=== PATIENT | male | born 1975 | race Caucasian/White ===

== ENCOUNTER 2025-07-25 10:50 | Observation (INO) | payer BC, SELFPAY ==
[2025-07-25] VITALS (12 sets, daily range): BP systolic 85–148; BP diastolic 65–96; PULSE 60–94; RESP 12–98; TEMP 36.1–37.2; O2SAT 94–99; BMI 32.2; BMI 33.1
--- NOTE | 2025-07-25 11:02 | XR_ITS ---
Examination: CT abdomen and pelvis without contrast. Coronal 3-D reconstructions. Sagittal 2-D reconstructions. Date and time of exam: July 25, 2025, 1139 hours INDICATIONS: Right upper abdominal pain nausea vomiting beginning today CTDI: vol (mGy): 9.27 DLP: (mGycm): 636 Technique: Axial images of the abdomen have been obtained, 3 mm slice thickness Intravenous contrast material has not been administered. Low dose protocols were performed. One or more of the following dose reduction techniques were used; automated exposure control, adjustment of the mA and/or KV according to patient size, use of iterative reconstruction technique. Findings: 2 mm pulmonary nodule in the right lower lobe Diffuse fatty infiltration throughout the liver Abnormal gallbladder, marked wall thickening and edema and distention with pericholecystic inflammatory change Common hepatic duct 6 mm no definite stones No pancreatic or adrenal mass Mild to moderate renal scar formation, no hydronephrosis Aorta normal size 14 mm fat-containing umbilical hernia Normal appendix No bowel obstruction Mild free fluid in the pelvis No prostatomegaly Urinary bladder intact Mild osteopenia IMPRESSION: Acute cholecystitis, enlarged common bile duct Consider MRCP follow-up
--- NOTE | 2025-07-25 11:02 | XR_ITS ---
Examination: Abdomen sonogram, Limited Date and time of exam: July 25, 2025, 1111 hours INDICATIONS: Onset right upper abdominal pain today Technique: Real-time shirley scale transabdominal sonographic images of the upper abdomen obtained. Findings: Multiple gallstones Gallbladder sludge Gallbladder wall 1.1 cm with edema Common bile duct 0.4 cm Pancreas obscured by bowel gas Liver 18.5 cm fatty infiltration Normal hepatopetal portal venous flow Patent IVC IMPRESSION: Acute calculus cholecystitis
--- NOTE | 2025-07-25 11:12 | PD.EDRME ---
Rapid Medical Screening Exam RME Arrival date/time: 07/25/25 10:50 50-year-old male presents to the Emergency Department today for complaints of right-sided abdominal pain Chief Complaint: Abdominal Pain Vital signs: Vital Signs Temperature 98.1 F 07/25/25 10:57 Pulse Rate 94 07/25/25 10:57 Respiratory Rate 19 07/25/25 10:57 Blood Pressure 148/96 H 07/25/25 10:57 Pulse Oximetry (%) 97 07/25/25 10:57 Oxygen Delivery Method Room Air 07/25/25 10:57
[2025-07-25 11:30] LABS: Basophils # (Auto) 0.1 Thou/mm3 (0.0-0.2); Basophils % (Auto) 0 % (0-2.5); Eosinophils # (Auto) 0.0 Thou/mm3 (0.0-0.5); Eosinophils % (Auto) 0 % (0-10); Hematocrit 44.7 % (41.0-53.0); Hemoglobin 15.7 g/dL (13.5-16.0); Immature Granulocytes Auto 0.08 Thou/mm3 (0.00-0.00); Lymphocytes # (Auto) 1.4 Thou/mm3 (1.0-4.8); Lymphocytes % (Auto) 8 % (10-50); Mean Corpuscular HGB Conc 35.1 g/dl (31.0-37.0); Mean Corpuscular Hemoglobin 30.9 pg (25.0-35.0); Mean Corpuscular Volume 88 fL (80-100); Monocytes # (Auto) 1.7 Thou/mm3 (0.0-0.8); Monocytes % (Auto) 10 % (0-12); Neutrophils # (Auto) 14.5 Thou/mm3 (1.8-7.7); Neutrophils % (Auto) 81 % (37-80); Nucleated Red Blood Cell # 0.00 Thou/mm3 (0.00-0.00); Nucleated Red Blood Cell % 0 /100 WBC (0); Platelet Count 189 Thou/mm3 (140-440); RDW Standard Deviation 40.5 fL (35.1-43.9); Red Blood Count 5.08 Miln/mm3 (4.50-5.90); White Blood Count 17.8 Thou/mm3 (3.8-10.6)
[2025-07-25] MEDS: HYDROcodone/APAP 5/325 TABLET 1 TAB PO (11:30)
[2025-07-25] MEDS: KETOROLAC INJ 30 MG/ML VIAL IM (11:31)
--- NOTE | 2025-07-25 11:34 | EDNOTE_ITS ---
ED General E/[facility] General Chief complaint: Abdominal Pain Stated complaint: RUQ ABD PAIN, NAUSEA VOMITING Time Seen by Provider: 07/25/25 11:34 Arrival date/time: 07/25/25 10:50 E / HPI RME / HPI narrative: 07/25/25 10:50 50-year-old male with past medical history of hypertension comes in for evaluation of right upper quadrant pain with associated nausea that was described as red, onset yesterday at 8 PM after eating hamburger, has never had the symptoms before, has not tried any pain medicines. Patient reports he began to have pain after he ate a [employer] cheeseburger. He denied having history of gallstones previously. He said that he has not been able to tolerate p.o. at this time. He rated his pain 8 out of 10 initially, however has improved. He is wonder if he is going to get surgery. No other complaints at this time. Related Data Allergies Allergy/AdvReac Type Severity Reaction Status Date / Time No Known Allergies Allergy Verified 07/25/25 10:53 Review of Systems Review of Systems Narrative Review of Systems: 12 point ROS reviewed and is otherwise negative unless stated directly in the HPI ED Exam Narrative Physical exam: General: AAOx3, NAD, HEENT: Moist mucous membranes, conjunctiva clear, EOMI, PERRLA, Cardiovascular: S1, S2, radial pulses +2 bilat, RRR Pulmonary: CTAB bilat no cough, no wheezing GI: RUQ tenderness upon palpitation, slight distension of abdomen Extremities: No presence of trace or pitting edema in lower extremities bilaterally, dorsalis pedis pulses +2 bilaterally Neuro: AAOx3, no focal motor or sensory deficits in the UE or LE bilat Psych: Good judgement, thought and behavior Course Quality Measures none Orders Category Date Time Status Patient Condition Routine Admission 07/25/25 13:[address] in Surgical Day Care Routine Admission 07/25/25 13:30 Active Activity as Tolerated Routine Care 07/25/25 13:30 Ordered Blood Cultures (Nursing) X2 PRN PRN Care 07/25/25 13:30 Active Consent [Obtain Written Consent For:] .NOW Care 07/25/25 13:30 Active Insert IV NOW Care 07/25/25 11:48 Active Intake and Output QSHIFT Care 07/25/25 13:30 Ordered NPO NOW Care 07/25/25 13:30 Active Notify provider NEEDED Care 07/25/25 13:30 Active Consult to General Surgery Stat Cons 07/25/25 13:28 Ordered Diet NPO (NOW) Diet 07/25/25 13:[address] abdomen pelvis wo con Stat Exams 07/25/25 11:02 Completed US gall bladder Stat Exams 07/25/25 11:02 Completed CBC Stat Lab 07/25/25 11:11 Completed Comprehensive Metabolic Panel Stat Lab 07/25/25 11:11 Completed Lactate (Lactic Acid) Stat Lab 07/25/25 12:57 Completed Lipase Stat Lab 07/25/25 11:11 Completed Troponin I Stat Lab 07/25/25 11:11 Completed UA, C/S IF [Urinalysis, C/S if Indicated] Stat Lab 07/25/25 11:02 Ordered HYDROcodone*/APAP 5/325 [[place] 5/325] Med 07/25/25 11:03 Discontinued 1 tab PO X1 ONE KCL 20 mEq/L in D5-1/2NS Med 07/25/25 13:30 Active 20 meq in 1,000 ml IV 100 mls/hr Ketorolac Inj [Toradol Inj] Med 07/25/25 11:03 Discontinued 30 mg IM X1 ONE Ondansetron Inj [Zofran Inj] Med 07/25/25 13:30 Active 4 mg IVP Q6H PRN Code Status Routine Oth 07/25/25 13:30 Ordered Vital Signs Vital signs: Vital Signs Temperature 98.1 F 07/25/25 10:57 Pulse Rate 94 07/25/25 10:57 Respiratory Rate 19 07/25/25 10:57 Blood Pressure 148/96 H 07/25/25 10:57 Pulse Oximetry (%) 97 07/25/25 10:57 Oxygen Delivery Method Room Air 07/25/25 10:57 Discharge Plan Plan Patient Disposition: Admit Acute Care w/in Hospital Prescriptions/Referrals Referrals: Ignacio Andrade FNP-C [Primary Care Provider] - In 1 week Problem List Clinical Impression: Calculus of gallbladder with acute cholecystitis without obstruction Patient/Caregiver Discharge Instructions Print Language: Hungarian Stand Alone Forms: Kadi Award Info., Patient Portal Info Letter MDM Narrative MDM hospital course (for use when minimal MDM required): 1330: Spoke with general surgeon, Dr Curry, who will review case. 1334: General surgeon, Dr Curry, accepts patient for admission. Medication Administration(s) Medication Administration History Potassium Chloride/Dextrose/Sod Cl (Kcl 20 Meq/L In D5-1/2ns) 20 meq in 1,000 mls @ 100 mls/hr IV .Q10H CHANDU Stop: 08/24/25 13:29 Ondansetron HCl (Ondansetron Inj 2 Mg/Ml Inj 2 Ml) 4 mg IVP Q6H PRN PRN Reason: NAUSEA OR VOMITING Stop: 08/24/25 13:29 Discontinued Medications Hydrocodone Bitart/Acetaminophen (Hydrocodone/Apap 5/325 Tablet) 1 tab PO X1 ONE Stop: 07/25/25 11:04 Last Admin: 07/25/25 11:30 Dose: 1 tab Documented By: Ketorolac Tromethamine (Ketorolac Inj 30 Mg/Ml Vial) 30 mg IM X1 ONE Stop: 07/25/25 11:04 Last Admin: 07/25/25 11:31 Dose: 30 mg Documented By:
[2025-07-25 11:52] LABS: Alanine Aminotransferase 41 U/L (10-49); Albumin, Serum 4.7 gm/dL (3.5-5.0); Albumin/Globulin Ratio 2.0 (1.2-2.2); Alkaline Phosphatase 48 U/L (46-116); Anion Gap 12 (7-16); Aspartate Amino Transferase 24 U/L (0-34); BUN/Creatinine Ratio 9 Ratio (12-20); Bilirubin,Total 2.2 mg/dL (0.3-1.2); Blood Urea Nitrogen 8 mg/dL (9-23); Calcium 9.7 mg/dL (8.3-10.6); Calcium (Corrected) 9.7 mg/dL (8.5-10.1); Carbon Dioxide 25.6 mMol/L (20.0-31.0); Chloride 104 mMol/L (98-107); Creatinine (Component) 0.9 mg/dL (0.6-1.3); Estimated Creatinine Clearance 111.7 mL/min (>60); Globulin 2.4 gm/dL (2.3-3.5); Glucose 158 mg/dL (74-106); Lipase 24 U/L (12-53); Osmolality,Calculated 284 (275-295); Potassium 3.8 mMol/L (3.4-5.1); Sodium 142 mMol/L (136-145); Total Protein 7.1 gm/dL (5.7-8.2); Troponin I < 0.002 ng/mL (0.0-0.045); eGFR > 60 See Note
[2025-07-25 13:01] LABS: Lactate (Lactic Acid) 1.4 mMol/L (0.4-2.0)
--- NOTE | 2025-07-25 13:34 | PD.SURHP ---
HPI Date of Admission 07/25/2025 Chief Complaint Chief Complaint: Right upper abdominal pain with nausea and vomiting HPI 50-year-old male with history of hypertension presenting to the emergency department for acute onset of abdominal pain. His pain started last night after consuming a cheeseburger. His pain is in the epigastric and right upper quadrant rating to his back. He has had nausea and vomiting, but denies fever, chills, jaundice or discoloration of urine or stool. He denies having similar symptoms in the past with no recent history of trauma or any travel. Review of Systems Constitutional Constitutional: Denies chills and Denies fever(s) Cardiovascular Cardiovascular: Denies chest pain Respiratory Respiratory: Denies cough Gastrointestinal Gastrointestinal: Reports abdominal pain, Reports nausea and Reports vomiting Musculoskeletal Musculoskeletal: Reports back pain Hematologic/Lymphatic Hematologic/Lymphatic: Denies easy bleeding and Denies easy bruising Past Medical History Surgical History OTHER SURGICAL HX: Right finger surgery Social History SMOKING STATUS: Never smoker SUBSTANCE USE: does not use ALCOHOL: Never Meds Home Medications and Allergies Allergies Allergy/AdvReac Type Severity Reaction Status Date / Time No Known Allergies Allergy Verified 07/25/25 10:53 Exam Vital Signs Temp Pulse Resp BP Pulse Ox O2 Del Method 98.1 F 94 19 148/96 H 97 Room Air 07/25/25 10:57 07/25/25 10:57 07/25/25 10:57 07/25/25 10:57 07/25/25 10:57 07/25/25 10:57 Constitutional Constitutional: no acute distress Routine HEENT Exam Eye: Present PERRL (Anicteric sclera) Routine Respiratory Exam Respiratory: Present CTA bilaterally Routine Cardiovascular Exam Cardiovascular: Present RRR Routine Abdominal Exam Abdominal: Present soft, normoactive bowel sounds and tenderness (Right upper quadrant tenderness to palpation with guarding, positive Pena sign); Absent distended Results Results: Laboratory Laboratory results: results reviewed Results: Imaging CT scan - abdomen: report reviewed and image reviewed CT scan - pelvis: report reviewed and image reviewed US - abdomen: report reviewed and image reviewed Assessment & Plan Problem List (1) Calculus of gallbladder with acute cholecystitis without obstruction: Status: Acute Plan Will take pt to OR for laparoscopic possible open cholecystectomy. Risks include but not limited to infection, bleeding, injury to bowel, liver, stomach, bile leak, retained stone, bile leak, abdominal sepsis and or abdominal abscess, need for further procedure and or operation discussed with the patient. Benefits and alternatives explained to him, all his questions answered, he agreed and consented to proceed with the operation. Quality Measures Quality Measures none
--- NOTE | 2025-07-25 14:12 | PC.NURSE ---
report given to service writer advisor. Vitals updated, IV to LAC. Patient last ate at 8pm 07/24/25. Belongings list and consent signed.
--- NOTE | 2025-07-25 14:28 | PD.SUROPNT ---
Date of Procedure 07/25/25 Pre Op Diagnosis Cholelithiasis with acute cholecystitis Post Op Diagnosis Cholelithiasis with acute gangrenous cholecystitis Procedure Laparoscopic cholecystectomy Findings Very distended, thick-walled and gangrenous gallbladder with gallstones and significant pericholecystic inflammation Procedure Description Patient was brought into the operating room in supine position. After administration of general endotracheal anesthesia abdomen was prepped and draped in standard surgical manner. A Veress needle was inserted through the umbilicus and pneumoperitoneum was obtained up to 15 mmHg. The Veress needle was then removed, a 5 mm infraumbilical incision was made and the 5mm trocar was inserted. Laparoscopic camera was placed. Under direct visualization a laparoscopic camera a 10 mm trocar was placed in subxiphoid and two 5 mm trocars placed in right upper quadrant. The gallbladder was identified and was noted to be very distended and tense, gangrenous in appearance with multiple stones, thick-walled and significant pericholecystic inflammation. The gallbladder was decompressed with an aspirator. It was retracted cephalad and laterally. Dissection started near the infundibulum of gallbladder where cystic duct and gallbladder junction clearly identified. The cystic duct was circumferentially dissected off the peritoneum and surrounding inflammatory tissue. The critical view of safety was clearly demonstrated. Cystic duct was then divided between 2 endoclips proximally and one distally. The cystic artery was similarly dissected and divided. The gallbladder was then from the liver bed using electrocautery. The gallbladder was then placed inside an Endo Catch and removed from the abdomen utilizing subxiphoid trocar site. The area was copiously and thoroughly washed and irrigated, all the fluid was suctioned and the suction fluid returned clear. Hemostasis achieved using electrocautery, also topical hemostatic agent using snow Surgicel placed at the gallbladder fossa to further assure hemostasis. Endoclips noted be in place and intact without any bleeding or any leakage. Hemostasis was adequate and satisfactory. The subxiphoid trocar sites fascial defect was closed with 0 Vicryl using Endo Closure device. Instruments and trocars removed, pneumoperitoneum was evacuated and the incisions closed with 4-0 Monocryl in subcuticular fashion. Instrument needle and sponge counts were all reported to be correct X2. Patient tolerated the procedure well, was extubated, breathing spontaneously and without difficulty and was transferred to postanesthesia care in stable condition. Anesthesia GETA and local Pathology / specimen Other (Gallbladder and contents) Estimated Blood Loss 50 Condition Stable Disposition PACU Surgeon Amna Curry MD Surgical Staff Operation Date: 07/25/25 13:35 <No data on this case meets the specified criteria>
--- NOTE | 2025-07-25 15:28 | SUR.PHASEI ---
pt received from OR in recovery bay 7. pt obtunded, breathing unlabored on nc 4l, oral airway in place. v/s stable. pt dressing to abd dermabond x4 cdi. report received from Chiara Melara and Dr. Mcguire.
--- NOTE | 2025-07-25 16:10 | SUR.PHASEII ---
pt able to tolerate oral fluids without difficulty swallowing or nausea/vomiting.
[2025-07-25] MEDS: KCL 20 mEq/L in D5-1/2NS 20 MEQ/1,000 ML BAG 100 MEQ IV (16:13)
--- NOTE | 2025-07-25 16:50 | SUR.PHASEII ---
pt awake and alert, breathing unlabored on room air. v/s stable. pt dressing to abd x4 cdi. report called to Marcy MADISON. pt will be transferred to room at this time.
[2025-07-25] MEDS: CEFOXITIN 2 GM in SODIUM CHLORIDE 0.9% (Popper) 50 ML IV ×2 (20:06→23:40)
[2025-07-25] MEDS: DOCUSATE SOD 100 MG CAPSULE PO (20:06)
[2025-07-26] VITALS: BP 136/91; PULSE 83; RESP 18; TEMP 36.6; O2SAT 97
[2025-07-26] MEDS: KCL 20 mEq/L in D5-1/2NS 20 MEQ/1,000 ML BAG 100 MEQ IV (03:05)
[2025-07-26] MEDS: HYDROcodone/APAP 5/325 TABLET 1 TAB PO ×2 (03:08→09:41)
[2025-07-26 04:00] VITALS: BP 146/93; PULSE 67; RESP 17; TEMP 36.2; O2SAT 95
[2025-07-26] MEDS: CEFOXITIN 2 GM in SODIUM CHLORIDE 0.9% (Popper) 50 ML IV ×2 (05:12→11:22)
[2025-07-26 06:30] VITALS: PULSE 69; RESP 17; RESP 95
[2025-07-26 07:20] VITALS: BP 151/95; PULSE 84; RESP 18; TEMP 36.3; O2SAT 95
--- NOTE | 2025-07-26 08:25 | PC.NURSE ---
COORDIANTED CARE WITH DR. GALINDO. ORDERS RECEIVED, READ BACK AND CARRIED OUT.
[2025-07-26] MEDS: DOCUSATE SOD 100 MG CAPSULE PO (08:39)
[2025-07-26 11:48] VITALS: BP 137/89; PULSE 84; RESP 18; TEMP 36.3; O2SAT 95
--- NOTE | 2025-07-26 13:40 | PD.SURPROG ---
Documentation for date of: 07/26/25 Subjective Subjective Narrative: Patient is seen and examined. His pain is improving. He is tolerating diet well Exam Vital Signs Temp Pulse Resp BP Pulse Ox O2 Del Method O2 Flow Rate 97.4 F 84 18 137/89 H 95 Room Air 2 07/26/25 11:48 07/26/25 11:48 07/26/25 11:48 07/26/25 11:48 07/26/25 11:48 07/26/25 11:48 07/25/25 16:15 Constitutional Constitutional: no acute distress Routine Abdominal Exam Comments: Abdomen is soft and nondistended. Incisions are clean, dry and intact Assessment & Plan Assessment Additional comments: Postop day #1 status post laparoscopic cholecystectomy Plan Discharge home PROCEDURES: Procedures Laparoscopic cholecystectomy
== END 2025-07-26 14:15 | disposition home or self-care (01) ==
LOC: SERX 11:51 → S2EX 13:42 → S3NX 17:00
PROVIDERS: Nurse Practitioner Primary Care; Admitting Provider Surgery; Emergency Provider Family Medicine; Referring Provider Surgery; Visit Provider Surgery
PROC: 0FT44ZZ Resection of Gallbladder, Percutaneous Endoscopic Approach (ICD-10-PCS; CPT 47562; principal; 2025-07-25 13:35)
DX: K80.00 Calculus of gallbladder with acute cholecystitis without obstruction (principal); K82.A1 Gangrene of gallbladder in cholecystitis; I10 Essential (primary) hypertension
CPT/HCPCS: 47562; 36415; 74176; 76705; 80053; 81001; 83605; 83690; 84484; 85025; 96365; 96366; 96372; 99285; A4217; A4649; G0378; J0131; J0694; J1100; J1885; J2704; J2765; J3010; J3480; J3490; J7050; A9270

== ENCOUNTER → 2025-08-19 | Outpatient (CLI) | payer BC, SELFPAY ==
--- NOTE | 2025-08-19 12:26 | XR_ITS ---
Examination: Right elbow 3 views Technique: Elbow AP, oblique, lateral 3 views Exam date and time: August 19, 2025, 1437 hours INDICATIONS: Injury to the elbow 1 month ago with elbow pain. 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
[2025-08-19 14:13] LABS: Basophils # (Auto) 0.1 Thou/mm3 (0.0-0.2); Basophils % (Auto) 1 % (0-2.5); Eosinophils # (Auto) 0.3 Thou/mm3 (0.0-0.5); Eosinophils % (Auto) 4 % (0-10); Hematocrit 44.5 % (41.0-53.0); Hemoglobin 15.4 g/dL (13.5-16.0); Immature Granulocytes Auto 0.05 Thou/mm3 (0.00-0.00); Lymphocytes # (Auto) 2.9 Thou/mm3 (1.0-4.8); Lymphocytes % (Auto) 34 % (10-50); Mean Corpuscular HGB Conc 34.6 g/dl (31.0-37.0); Mean Corpuscular Hemoglobin 30.8 pg (25.0-35.0); Mean Corpuscular Volume 89 fL (80-100); Monocytes # (Auto) 0.7 Thou/mm3 (0.0-0.8); Monocytes % (Auto) 8 % (0-12); Neutrophils # (Auto) 4.5 Thou/mm3 (1.8-7.7); Neutrophils % (Auto) 53 % (37-80); Nucleated Red Blood Cell # 0.00 Thou/mm3 (0.00-0.00); Nucleated Red Blood Cell % 0 /100 WBC (0); Platelet Count 190 Thou/mm3 (140-440); RDW Standard Deviation 39.8 fL (35.1-43.9); Red Blood Count 5.00 Miln/mm3 (4.50-5.90); White Blood Count 8.6 Thou/mm3 (3.8-10.6)
[2025-08-19 14:26] LABS: Alanine Aminotransferase 41 U/L (10-49); Albumin, Serum 4.8 gm/dL (3.5-5.0); Albumin/Globulin Ratio 2.2 (1.2-2.2); Alkaline Phosphatase 60 U/L (46-116); Anion Gap 8 (7-16); Aspartate Amino Transferase 27 U/L (0-34); BUN/Creatinine Ratio 8 Ratio (12-20); Bilirubin,Total 1.0 mg/dL (0.3-1.2); Blood Urea Nitrogen 8 mg/dL (9-23); Calcium 9.6 mg/dL (8.3-10.6); Calcium (Corrected) 9.6 mg/dL (8.5-10.1); Carbon Dioxide 28.1 mMol/L (20.0-31.0); Chloride 108 mMol/L (98-107); Creatinine (Component) 1.0 mg/dL (0.6-1.3); Globulin 2.2 gm/dL (2.3-3.5); Glucose 108 mg/dL (74-106); Lipase 27 U/L (12-53); Osmolality,Calculated 286 (275-295); Potassium 4.0 mMol/L (3.4-5.1); Sodium 144 mMol/L (136-145); Total Protein 7.0 gm/dL (5.7-8.2); eGFR > 60 See Note
== END | disposition home or self-care (01) ==
LOC: CDIM 12:17 → COPL 13:40
PROVIDERS: Visit Provider Radiology Diagnostic Radiology
DX: M25.522 Pain in left elbow (principal); R10.11 Right upper quadrant pain; Z90.49 Acquired absence of other specified parts of digestive tract
CPT/HCPCS: 36415; 73080; 80053; 83690; 85025